=== PATIENT | male | born 1965 | race Caucasian/White ===

== ENCOUNTER 2018-05-06 15:47 | Inpatient (IN) ==
[2018-05-06] MEDS ORDERED: Acetaminophen 325 MG Tablet PO PRN (20:22)
[2018-05-06] MEDS ORDERED: Aluminum/Magnesium/Simethacone Susp 30 ML UDC PO PRN (20:22)
[2018-05-06] MEDS: LORazepam 1 MG Tablet PO PRN (21:05)
[2018-05-07] MEDS: LORazepam 1 MG Tablet PO PRN ×3 (09:44→18:29)
[2018-05-07 11:07] LABS: Cholesterol 243 mg/dL (120-200); Triglycerides 210 mg/dL (42-150)
[2018-05-07 11:08] LABS: Anion Gap 13 meq/L (5-15); Blood Urea Nitrogen 12 mg/dL (7-18); Calcium 9.3 mg/dL (8.5-10.1); Chloride 102 meq/L (98-107); Glomerular Filtration Rate Greater Than 89 mL/min (>89); Glucose,Random 105 mg/dL (74-106); Sodium 136 meq/L (136-145)
[2018-05-07 11:09] LABS: Potassium 4.5 meq/L (3.5-5.1)
[2018-05-07 11:15] LABS: Chol/HDL Ratio 4.67 Ratio; LDL Cholesterol,Calculated 149 mg/dL (0-99)
--- NOTE | 2018-05-07 12:46 | P.HPPSY ---
Provisional Diagnosis Admission Date: May 06, 2018 15:49 [place] I.: 1. Adjustment disorder with depressed mood Rule-out alcohol-induced mood disorder Rule-out mood episode as part of unipolar or bipolar mood disorder Rule-out secondary gain 2. Alcohol dependence Lowman II.: 1. Some cluster B personality traits Competence Certification of Person's Competence To Provide Express and Informed Consent I have personally examined Rahul Cadena, a person being served at [facility] on, May 07, 2018 1246. Express and informed consent means consent voluntarily given in writing, by a competent person, after sufficient explanation and disclosure of the subject matter involved to enable the person to make a knowing and willful decision without any element of force, fraud, deceit, duress, or other form of constraint or coercion. This person is 18 years of age or older, is not now known to be incompetent to consent to treatment with a guardian advocate, and does not have a health care surrogate or proxy currently making medical treatment decisions. I have found this person to be one of the following: [x] Competent to provide express and informed consent, as defined above, for voluntary admission to this facility and is competent to provide express and informed consent for treatment. He/she has the consistent capacity to make well reasoned, willful, and knowing decisions concerning his or her medical or mental health treatment. The person fully and consistently understands the purpose of the admission for examination/placement and is fully capable of personally exercising all rights assured [place] Incompetent to provide express and informed consent to voluntary admission, and this is incompetent to provide express and informed consent to treatment. The person must be transferred to involuntary status and a petition for a guardian advocate filed with the Circuit Court. [] Refusing to provide express and informed consent to voluntary admission but is competent to provide express and informed consent for treatment. The person must be discharged or transferred to involuntary status. Form shall be completed within 24 hours of a person's arrival at the receiving facility and filed in the clinical record of each person: 1. Admitted on a voluntary basis 2. Permitted to provide express and informed consent to his/her own treatment 3. Allowed to transfer from involuntary to voluntary status 4. Prior to permitting a person to consent to his or her own treatment after having been previously found incompetent to consent to treatment. History of Present Illness Capacity: Has capacity Chief Complaint: Nieto Act History of Present Illness: Mr. Cadena is a 52-year-old male with a reported history of depression, possible BPAD, and alcohol use issues who presents in transfer from the medical floor under a Nieto Act for suicidal ideation. Patient was seen in consultation on the medical floor by Dr. Lewis. The notes from the medical floor are presently filed under a different medical record number. Reviewing the electronic medical record, I see no previous psychiatric contact within our system. Patient seen and examined with nurse. Chart reviewed. Case discussed with nursing staff. On my exam, patient is noted to be somewhat passive aggressive and faultfinding initially. He exhibits some cluster B personality traits. He reports that he became distressed over the weekend and overdosed impulsively on 5 Depakote and 5 methocarbamol. His Depakote level was checked in the other medical record and was 43, i.e. low. He denies ongoing suicidal ideation. He complains of some mood instability, although he is a fairly vague historian and can describe no associated symptoms. I can appreciate no symptoms of wanda or hypomania presently. He does seem a little dysphoric and tearful at times. He denies any audiovisual hallucinations, and I can elicit no delusional material. He does allude to a traumatic history, although this too is somewhat diffuse, and says that he has experienced nightmares and hyperarousal in the past. The remainder of the psychiatric ROS is negative. No acute physical complaints. Past psychiatric history: The patient reports a history of "dual diagnosis" and says that he has had problems with "the bipolar, the depression." He reports that he is recently arrived in the area from [place] and followed in that state with a Dr. Charity Fields for psychiatric care and to Dr. Mera for psychotherapy. He reports that he was most recently hospitalized in [place], although the timing of this hospitalization is unclear. He reports one previous suicide attempt by overdose on drugs and alcohol in October,. He can remember no previous medication trials except for lithium, which made him feel "snappy." Family history: The patient denies a family history of mental illness, substance use disorder or suicide. Chemical dependency history: The patient reports that he drinks 2-18 beers daily. He endorses a history of withdrawal seizure in the past. He denies a history of DTs. He denies any other history of substance use. Social history: Patient is recently arrived in [facility]. He is single. He has a daughter, age 9, who resides with her mother. 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 He denies any access to guns or firearms. He denies any legal issues presently and denies any history of violent crime. He denies any history of DUIs. He describes himself as spiritual and says that he was raised [employer]. He does allude to a trauma history as noted above. Past medical history: Includes a history of diabetes, hypertension and neuropathy. 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 He denies a history of seizure disorder and says that he takes the Depakote for mood stabilization. - Inpatient Certification I certify that the inpatient services were ordered in accordance with Medicare regulations governing the order. This includes certification that hospital inpatient services are reasonable and necessary and in the case of services not specified as inpatient-only under 42 CFR 419.22(n), that they are appropriately provided as inpatient services in accordance to with the 2-midnight benchmark under 43 CFR 412.3(e) I certify that inpatient psychiatric hospital services are medically necessary. Evaluation and treatment and/or diagnostic testing are expected to improve the patient's condition. The patient needs on a daily basis, active treatment furnished directly by or requiring the supervision of inpatient psychiatric facility personnel. Estimated Total Length of Stay (Days): 5 Plans for Post Hospital Care: Not yet determined Review of Systems All other systems reviewed negative except as stated in HPI PMFSH - History History Provided By: Patient - Medical History Medical History: Medical History (Last Updated 05/07/18 @ 14:18 by Amelia Amezcua) Alcohol abuse Asthma Bipolar disorder Diabetes Hypertension - Surgical History Surgical History: Surgical History (Last Updated 05/07/18 @ 14:22 by Amelia Amezcua) H/O nasal septoplasty - Family History Family History: Family History (Last Updated 05/07/18 @ 14:22 by Amelia Amezcua) Other Family history reviewed with no changes - Tobacco History Second Hand Smoke Exposure: No Tobacco Use In Past 30 Days: No Smoking Status: Never smoker - Alcohol History How Often Do You Have a Drink Containing Alcohol: 4 or more times a week - Substance Use History Substance History: No History of Abuse Quality Measures - Patient Strengths Patient's strengths (minimum of 2): Attending to basic needs. Verbally fluent. Medications and Allergies Active Medications: Active Medications Acetaminophen (Tylenol) 650 mg PO Q4H PRN PRN Reason: Pain 1-5 or Temp >101F Al Hydrox/Mg Hydrox/Simethicone (Mag-Al Plus Susp Liq) 30 ml PO Q6H PRN PRN Reason: DYSPEPSIA Al Hydroxide/Mg Hydroxide (Milk Of Magnesia Liq) 30 ml PO DAILY PRN PRN Reason: CONSTIPATION Clonidine HCl (Catapres) 0.2 mg PO Q6H PRN PRN Reason: SEE LABEL COMMENTS Flumazenil (Romazecon Inj) 0.2 mg IV.PUSH Q1M PRN PRN Reason: OVERSEDATION Lorazepam (Ativan) 1 mg PO Q4H PRN PRN Reason: for CIWA 8-10 Last Admin: 05/07/18 09:44 Dose: 1 mg Lorazepam (Ativan) 2 mg PO Q2H PRN PRN Reason: for CIWA 11-14 Lorazepam (Ativan Inj) 2 mg IV.PUSH Q1H PRN PRN Reason: for CIWA 15-20 Lorazepam (Ativan Inj) 2 mg IV.PUSH Q15M PRN PRN Reason: for CIWA > 20 Lorazepam (Ativan Inj) 1 mg IV.PUSH Q4H PRN PRN Reason: for CIWA 8-10 Lorazepam (Ativan Inj) 2 mg IV.PUSH Q2H PRN PRN Reason: for CIWA 11-14 Multivitamins (Theragran) 1 tab PO DAILY [facility] Last Admin: 05/07/18 09:44 Dose: 1 tab Nicotine (Habitrol 21 Mg Patch.24 Hr) 1 patch T-DERMAL DAILY [facility] Last Admin: 05/07/18 09:10 Dose: Not Given Patch Removal (Remove Old Patch) 1 each T-DERMAL HS [facility] Thiamine HCl (Vitamin B1) 100 mg PO DAILY [facility] Last Admin: 05/07/18 09:44 Dose: 100 mg Allergies Allergy/AdvReac Type Severity Reaction Status Date / Time cat dander Allergy Intermediate asthma Verified 05/06/18 17:52 dog dander Allergy Intermediate asthma Verified 05/06/18 17:52 ragweed pollen Allergy Mild Shortness Verified 05/06/18 17:52 of Breath peanut Allergy Unknown Rash Verified 05/06/18 17:52 Results - Labs CBC & Chem 7: 05/07/18 09:53 Labs: Laboratory Results - last 24 hr 05/06/18 05/07/18 16:59 09:53 Sodium 136 Potassium 4.5 Chloride 102 Carbon Dioxide 21.0 Anion Gap 13 BUN 12 Creatinine 0.85 Estimated GFR Greater than 89 POC Glucose 98 Random Glucose 105 Calcium 9.3 Triglycerides 210 H Cholesterol 243 H LDL Cholesterol, Calc 149 H HDL Cholesterol 52.0 Cholesterol/HDL Ratio 4.67 Labs from the medical floor reviewed. CBC reveals a platelet count of 138, otherwise unremarkable. PT/INR within normal limits. CMP reveals elevated AST at 100. TSH was elevated at 3.87 but free T4 was within normal limits at 1.03. Alcohol level was elevated at 356 on presentation here. Urine toxicology was negative. Exam Vital signs: Vital Signs 05/06/18 17:00 05/07/18 05:24 Temperature 97.6 F 98.0 F Pulse Rate 117 H 106 H Respiratory Rate 18 16 Blood Pressure 145/95 H 136/88 Pulse Oximetry 98 Intake & Output 05/06/18 05/07/18 05/07/18 18:59 06:59 18:59 Weight 82.4 kg Narrative: Physical examination completed by hospitalist technical sales consultant. On my examination today, the patient appears to be in no acute physical distress. He does have a mild resting hand tremor but exhibits no diaphoresis, no mydriasis, no other signs of alcohol withdrawal. No other motor abnormalities noted. Labs and vital signs reviewed: Mental Status Examination Appearance: Appropriate Consciousness: Alert Orientation: x4 Motor Activity: Normal gait Speech: Unremarkable Language: Adequate Fund of Knowledge: Adequate Attention and Concentration: Adequate Memory: Unremarkable (Grossly intact on clinical exam) Mood: Other (Dysphoric) Affect: Appropriate (Fairly full and reactive) Thought Process & Associations: Circumstantial Thought Content: Appropriate Hallucination Type: None Delusion Type: None Suicidal Ideation: No Suicidal Plan: No Suicidal Intention: No Homicidal Ideation: No Homicidal Plan: No Homicidal Intention: No Insight: Fair Judgment: Impulsive Assessment and Plan - Assessment (1) Adjustment disorder with depressed mood Code(s): F43.21 - Adjustment disorder with depressed mood Status: Acute (2) Alcohol dependence Code(s): F10.20 - Alcohol dependence, uncomplicated Status: Acute - Plan Plan: 52-year-old male with psychiatric history as detailed above who presents in transfer from the medical floor under a Nieto act. On my examination today, the patient presents as a fairly vague historian. He does complain of some mood instability on an outpatient basis and presently his mood is somewhat dysphoric. He does describe a history of depression, possible bipolar illness and was apparently taking Depakote, trazodone and Zoloft on an outpatient basis. He reports impulsive overdose prior to presentation to the ED. Patient' s goal seems to be some sort of extended residential treatment, possibly chem dep rehab, and I wonder about secondary gain with this goal in mind; his reported overdose seems low-lethality and gestural. Some degree of alcohol- induced mood disorder is also possible. I will plan to admit the patient to the inpatient psychiatric unit for safety, observation and stabilization. Admit inpatient. Voluntary status. Discontinue Depakote and trazodone and replace with Zyprexa 5mg qHS, which it is hoped will provide both mood stabilization and assistance with sleep and in so doing reduce polypharmacy. I did discuss with patient in particular the potential for worsening of blood sugar control with this agent. Check EKG for QTc. Continue Zoloft 50mg daily as ordered on the medical floor. Atarax as needed for anxiety. R/B/A for medications discussed with patient. CIWA scale with Ativan for the management of any withdrawal. Seizure precautions. Hospitalist consult. Vitals every shift. Counselor to see. Collateral information. Disposition planning. Estimated length of stay: 5-7 days. Justification for Continued Inpatient Stay: Medication changes. Monitoring for impairment in safety. Discharge Planning: Pending psychiatric stabilization Request Healthcare Surrogate/Guardian Advocate?: No
[2018-05-07] MEDS ORDERED: Dextrose 50% in Water 50 ML Vial IV.PUSH PRN (12:51)
--- NOTE | 2018-05-07 14:44 | P.CON ---
History of Present Illness Service: Hospitalist service Consult date: 05/07/18 Requesting Physician: Arsenio Torres Reason for Consult: Assist with medical management Primary Care Provider: UNKNOWN History of Present Illness: This is a 52-year-old male with past medical history significant for bipolar disorder, hypertension, diabetes and alcohol abuse who was recently admitted under Nieto act to [place] on 05/04/2018 with alcohol withdrawal and questionable suicide attempt with excessive alcohol use in taking unknown amount of Depakote and Flexeril. Reportedly, patient moved to [place] 2 months ago. He had been clean from alcohol for 100 days but due to life stressors began drinking again. Patient was evaluated by psychiatry and admitted to the inpatient psychiatric unit. Hospitalist services have been consulted to assist with medical management. Patient seen and examined. Patient states he is still somewhat tremulous. He denies any auditory or visual hallucinations. Denies any nausea vomiting or abdominal pain. Denies any diarrhea. He reports 6 month history of dizziness that occurs with postural changes worse with upon standing. He denies any loss of consciousness but states it has been so severe that he fell and injured his lip. He denies any associated headache, memory loss or slurred speech. Review of Systems All other systems reviewed negative except as stated in HPI PMFSH - History History Provided By: Patient - Medical History Medical History: Medical History (Last Updated 05/07/18 @ 14:18 by Amelia Amezcua) Alcohol abuse Asthma Bipolar disorder Diabetes Hypertension - Surgical History Surgical History: Surgical History (Last Updated 05/07/18 @ 14:22 by Amelia Amezcua) H/O nasal septoplasty - Family History Family History: Family History (Last Updated 05/07/18 @ 14:22 by Amelia Amezcua) Other Family history reviewed with no changes - Tobacco History Second Hand Smoke Exposure: No Tobacco Use In Past 30 Days: No Smoking Status: Never smoker - Alcohol History How Often Do You Have a Drink Containing Alcohol: 4 or more times a week - Substance Use History Substance History: No History of Abuse Medications and Allergies Active Medications: Active Medications Acetaminophen (Tylenol) 650 mg PO Q4H PRN PRN Reason: Pain 1-5 or Temp >101F Al Hydrox/Mg Hydrox/Simethicone (Mag-Al Plus Susp Liq) 30 ml PO Q6H PRN PRN Reason: DYSPEPSIA Al Hydroxide/Mg Hydroxide (Milk Of Magnesia Liq) 30 ml PO DAILY PRN PRN Reason: CONSTIPATION Budesonide/Formoterol Fumarate (Symbicort 160/4.5 Mcg Inh) 2 puff INH BID [facility] Clonidine HCl (Catapres) 0.1 mg PO Q6H PRN PRN Reason: SEE LABEL COMMENTS Dextrose (D50w Vial) 50 ml IV.PUSH UNSCH PRN PRN Reason: PER HYPOGLYCEMIA PROTOCOL Flumazenil (Romazecon Inj) 0.2 mg IV.PUSH Q1M PRN PRN Reason: OVERSEDATION Glipizide (Glucotrol) 10 mg PO BID@0800,1700 [facility] Glucagon (Glucagon Inj) 1 mg OTHER PRN PRN PRN Reason: for Hypoglycemia Protocol Hydroxyzine HCl (Atarax) 50 mg PO Q6H PRN PRN Reason: ANXIETY Insulin Aspart (Novolog Insulin Suppl Scale Inj) 0 unit SQ ACHS [facility]; Protocol Lorazepam (Ativan) 1 mg PO Q4H PRN PRN Reason: for CIWA 8-10 Last Admin: 05/07/18 09:44 Dose: 1 mg Lorazepam (Ativan) 2 mg PO Q2H PRN PRN Reason: for CIWA 11-14 Lorazepam (Ativan Inj) 2 mg IV.PUSH Q1H PRN PRN Reason: for CIWA 15-20 Lorazepam (Ativan Inj) 2 mg IV.PUSH Q15M PRN PRN Reason: for CIWA > 20 Lorazepam (Ativan Inj) 1 mg IV.PUSH Q4H PRN PRN Reason: for CIWA 8-10 Lorazepam (Ativan Inj) 2 mg IV.PUSH Q2H PRN PRN Reason: for CIWA 11-14 Metformin [facility] (Gluc[facility]) [facility] Multivitamins (Theragran) 1 tab PO DAILY [facility] Last Admin: 05/07/18 09:44 Dose: 1 tab Nicotine (Habitrol 21 Mg Patch.24 Hr) 1 patch T-DERMAL DAILY [facility] Last Admin: 05/07/18 09:10 Dose: Not Given Olanzapine (Zyprexa) 5 mg PO HS [facility] Patch Removal (Remove Old Patch) 1 each T-DERMAL HS [facility] Sertraline HCl (Zoloft) 50 mg PO DAILY [facility] Thiamine HCl (Vitamin B1) 100 mg PO DAILY [facility] Last Admin: 05/07/18 09:44 Dose: 100 mg Allergies Allergy/AdvReac Type Severity Reaction Status Date / Time cat dander Allergy Intermediate asthma Verified 05/06/18 17:52 dog dander Allergy Intermediate asthma Verified 05/06/18 17:52 ragweed pollen Allergy Mild Shortness Verified 05/06/18 17:52 of Breath peanut Allergy Unknown Rash Verified 05/06/18 17:52 Physical Exam Vital signs: Vital Signs 05/06/18 17:00 05/07/18 05:24 Temperature 97.6 F 98.0 F Pulse Rate 117 H 106 H Respiratory Rate 18 16 Blood Pressure 145/95 H 136/88 Pulse Oximetry 98 Intake & Output 05/06/18 05/07/18 05/07/18 18:59 06:59 18:59 Weight 82.4 kg Narrative: GENERAL: This is a well-developed well-nourished male, no acute distress. Awake and alert. SKIN: Warm and dry. HEAD: Atraumatic. Normocephalic. EYES: Pupils equal and round. No scleral icterus. No injection or drainage. ENT: No nasal bleeding or discharge. Mucous membranes pink and moist. NECK: Trachea midline. CARDIOVASCULAR: Tachycardic. No murmurs noted. RESPIRATORY: No accessory muscle use. Clear to auscultation. Breath sounds equal bilaterally. GASTROINTESTINAL: Abdomen soft, non-tender, nondistended. Hepatic and splenic margins not palpable. MUSCULOSKELETAL: Extremities without clubbing, cyanosis, or edema. No obvious deformities. NEUROLOGICAL: Awake and alert. No obvious cranial nerve deficits. Motor grossly within normal limits. Able to move all extremities spontaneously. Bilateral hand tremors noted. Normal speech. PSYCHIATRIC: Appropriate mood and affect; insight and judgment normal. Assessment and Plan - Plan 52-year-old male with past medical history significant for bipolar disorder, hypertension, diabetes and alcohol abuse who was recently admitted under Nieto act to [place] on 05/04/2018 with alcohol withdrawal and questionable suicide attempt with excessive alcohol use in taking unknown amount of Depakote and Flexeril now in inpatient psychiatry and hospitalist services consulted to assist with medical management. Bipolar disorder Questionable suicide attempt with excessive alcohol, Flexeril and unknown amount of depakote Alcohol abuse History of alcohol withdrawal seizures Depakote level 43 05/04/18 serum alcohol level 356 at admission -Management per psychiatry -[facility] protocol -Monitor for signs of withdrawal -Seizure precautions -Thiamine/multivitamin with folic acid daily Dizziness, suspect orthostatic hypotension -Obtain orthostatic BP measurement -Fall precautions Tachycardia, suspect secondary withdrawal -monitor Hypertension History of intolerance to Norvasc secondary to edema -Lisinopril 5mg daily -Clonidine as needed with parameters -Continue to monitor BP and adjust treatment accordingly Diabetes A1c 6 -Continue patient on home dose of glipizide and metformin -Accu-Cheks and insulin sliding scale Dyslipidemia Tg 210, Chol 243, LDL 149 -Patient's ASCVD ten-year risk is 10.6% indicating he would benefit from statin therapy however patient with elevated AST -Recommend patient follow-up with PCP as outpatient to discuss possible initiation of statin therapy and have LFTs rechecked Transaminitis, secondary to alcohol abuse -Avoid hepatotoxic agent -Follow-up with PCP as outpatient to have LFTs rechecked Asthma, not in acute exacerbation -Duonebs as needed -Continue to monitor respiratory status DVT prophylaxis -Patient is ambulatory Thank you very kindly for this consultation. We will follow patient along with you. Discussed Condition With: patient and nursing staff
[2018-05-07] MEDS ORDERED: glipiZIDE 10 MG Tablet PO SCH (17:00)
--- NOTE | 2018-05-07 17:52 | ECG ---
Date Performed: 05/07/2018 Time Performed: 17:33:37 PTAGE: 52 years EKG: SINUS TACHYCARDIA WITH OCCASIONAL SUPRAVENTRICULAR PREMATURE COMPLEXES ABNORMAL RHYTHM ECG NO PREVIOUS TRACING DOCTOR: Sancho Harrison Interpretating Date/Time 05/07/2018 17:50:45
[2018-05-07] MEDS: Insulin NovoLOG Aspart Correctional Sugar Inj SQ SCH ×2 (19:30→20:13)
[2018-05-07] MEDS ORDERED: Budesonide-Formoterol 160/4.5 MCG 6 GM Inhaler INH SCH (21:00)
[2018-05-08] MEDS ORDERED: Sertraline 50 MG Tablet PO SCH (09:00)
[2018-05-08] MEDS ORDERED: Lisinopril 5 MG Tablet PO SCH (09:00)
[2018-05-08] MEDS: Insulin NovoLOG Aspart Correctional Sugar Inj SQ SCH (12:10)
--- NOTE | 2018-05-08 13:33 | P.DSPSY ---
Psychiatry Discharge Summary Inpatient Psychiatric care?: Yes Advance Directives: No Mental Health Advance Directive: No Health Care Proxy: No - Admission Admission Date: May 06, 2018 15:49 - Admission Diagnosis (1) Adjustment disorder with depressed mood Code(s): F43.21 - Adjustment disorder with depressed mood (2) Alcohol dependence Code(s): F10.20 - Alcohol dependence, uncomplicated Brief History: Mr. Cadena is a 52-year-old male with a reported history of depression, possible BPAD, and alcohol use issues who presents in transfer from the medical floor under a [place] for suicidal ideation. Patient was seen in consultation on the medical floor by Dr. Lewis. The notes from the medical floor are presently filed under a different medical record number. Reviewing the electronic medical record, I see no previous psychiatric contact within our system. Patient seen and examined with nurse. Chart reviewed. Case discussed with nursing staff. On my exam, patient is noted to be somewhat passive aggressive and faultfinding initially. He exhibits some cluster B personality traits. He reports that he became distressed over the weekend and overdosed impulsively on 5 Depakote and 5 methocarbamol. His Depakote level was checked in the other medical record and was 43, i.e. low. He denies ongoing suicidal ideation. He complains of some mood instability, although he is a fairly vague historian and can describe no associated symptoms. I can appreciate no symptoms of wanda or hypomania presently. He does seem a little dysphoric and tearful at times. He denies any audiovisual hallucinations, and I can elicit no delusional material. He does allude to a traumatic history, although this too is somewhat diffuse, and says that he has experienced nightmares and hyperarousal in the past. The remainder of the psychiatric ROS is negative. No acute physical complaints. Past psychiatric history: The patient reports a history of "dual diagnosis" and says that he has had problems with "the bipolar, the depression." He reports that he is recently arrived in the area from [place] and followed in that state with a Dr. Charity Fields for psychiatric care and to Dr. Mera for psychotherapy. He reports that he was most recently hospitalized in [place], although the timing of this hospitalization is unclear. He reports one previous suicide attempt by overdose on drugs and alcohol in October,. He can remember no previous medication trials except for lithium, which made him feel "snappy." Family history: The patient denies a family history of mental illness, substance use disorder or suicide. Chemical dependency history: The patient reports that he drinks 2-18 beers daily. He endorses a history of withdrawal seizure in the past. He denies a history of DTs. He denies any other history of substance use. Social history: Patient is recently arrived in [facility]. He is single. He has a daughter, age 9, who resides with her mother. He has an associates degree and says that he works as "an [employer]." He served in [employer]. He denies any access to guns or firearms. He denies any legal issues presently and denies any history of violent crime. He denies any history of DUIs. He describes himself as spiritual and says that he was raised [employer]. He does allude to a trauma history as noted above. Past medical history: Includes a history of diabetes, hypertension and neuropathy. 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 He denies a history of seizure disorder and says that he takes the Depakote for mood stabilization. Tobacco Use In Past 30 Days: No How Often Do You Have a Drink Containing Alcohol: 4 or more times a week Hospital Course: Patient was admitted to a locked, inpatient psychiatric unit. A general medical consultation was obtained. Appropriate precautions were in place throughout patient's hospital stay. Patient was seen and examined on the unit by psychiatry and also visited by counselor. Psychotropic medications were adjusted. Patient tolerated medication changes well without side effects. There was no evidence of suicidality or homicidality while the patient has been under observation on the inpatient unit. There was no evidence of self-care deficit. On the day of discharge: Patient seen and examined with nurse. Chart reviewed. Case discussed with nursing staff. No behavioral issues noted overnight. Case discussed with counselor. On my examination today, the patient is requesting discharge from the inpatient psychiatric unit today. He slept well with the Zyprexa last night and feels much improved today. He denies any suicidal or homicidal ideation, intent or plan and contracts for safety. Mood is "good." I can elicit no depressive or hypomanic/manic symptoms today. He denies any audiovisual hallucinations, and I can elicit no delusional material. There is no evidence of impairment in reality construction. He denies side effects from medications. He has no physical complaints. Patient's plan is to go [facility] [place] to obtain residential chemical dependency treatment, and I suspect this was his goal all along. Counselor Stacie has spoken with patient [facility] social worker aide and reports that SW will be able to meet with patient today after discharge and facilitate patient' s plan. Stacie has also spoken with patient's roommate who will be able to retrieve the patient and also is comfortable with having patient stay with him for a few days if this is needed prior to entry into [facility] program. Weighing the relevant factors and based on the available evidence, I overcoil stepper that the patient does not meet criteria for involuntary psychiatric hospitalization. Firstly, there is an available less restrictive alternative to involuntary hospitalization, namely the plan outlined above. Secondly, there is no evidence of imminent ongoing risk of harm to self or others, nor is there evidence of self-care deficit to support involuntary psychiatric hospitalization. The patient is requesting discharge from the inpatient psychiatric unit today, and I have no basis to retain him over his objection. That having been said, his departure does seem somewhat abrupt, and I think he would benefit from additional inpatient observation out of an abundance of caution. I have recommended that he remain through the weekend, but he has declined. I will therefore discharge him AGAINST MEDICAL ADVICE. I have explained to the patient that he is leaving AGAINST MEDICAL ADVICE. Psychiatric follow-up through the [facility]. Patient is also to follow up with primary care. I have supported the patient in his desire for sobriety. Patient to return to the psychiatric emergency room for any concerning symptoms as part of a general safety plan. I have prescribed patient's psychotropic medications in the smallest quantity consistent with good care to reduce the risk of impulsive overdose. - Discharge Discharge Date: 05/08/18 - Discharge Diagnosis (1) Adjustment disorder with depressed mood Diagnosis: Principal (resolved) Code(s): F43.21 - Adjustment disorder with depressed mood Status: Acute (2) Alcohol dependence Diagnosis: Secondary Code(s): F10.20 - Alcohol dependence, uncomplicated Status: Acute Discharge Disposition: AMA - Discharge Instructions Discharge Diet: Diabetic Diet Activities You Can Perform: Weight Bearing As Tolerat - Discharge Time > 30 minutes Mental Status Examination Appearance: Appropriate Consciousness: Alert Orientation: x4 Motor Activity: Other (Mild resting hand tremor. No diaphoresis, no mydriasis, no other signs of GABAergic withdrawal. No other motor abnormalities noted.) Speech: Unremarkable Language: Adequate Fund of Knowledge: Adequate Attention and Concentration: Adequate Memory: Unremarkable (Grossly intact on clinical exam) Mood: Appropriate, Good Affect: Appropriate, Euthymic Thought Process & Associations: Intact Thought Content: Appropriate Hallucination Type: None Delusion Type: None Suicidal Ideation: No Suicidal Plan: No Suicidal Intention: No Homicidal Ideation: No Homicidal Plan: No Homicidal Intention: No Mental Status Exam Remarks: Insight and judgment are perhaps fair Discharge/Advance Care Plan - Results Vital Signs: Last Vital Signs Temp 98.0 F 05/07/18 05:24 Pulse 106 H 05/07/18 05:24 Resp 16 05/07/18 05:24 BP 136/88 05/07/18 05:24 Pulse Ox 98 05/07/18 05:24 Lab Results: Abnormal Lab Results 05/07/18 05/07/18 05/08/18 09:53 16:43 11:13 POC Glucose 140 H 172 H Hemoglobin A1c 6.0 Laboratory Results Hemoglobin A1c 6.0 % (4.3-6.0) 05/07/18 09:53 Triglycerides 210 mg/dL (42-150) H 05/07/18 09:53 Cholesterol 243 mg/dL (120-200) H 05/07/18 09:53 LDL Cholesterol, Calc 149 mg/dL (0-99) H 05/07/18 09:53 HDL Cholesterol 52.0 mg/dL (40.0-60.0) 05/07/18 09:53 Summary of Procedures: None done Pending Results: None - Medications Number of antipsychotic medications at discharge: 1 - Discharge Care Plan Goals to Promote Your Health: * To prevent worsening of your condition and complications * To maintain your health at the optimal level Directions to Meet Your Goals: Take your medications as prescribed Follow your dietary instruction Follow activity as directed Keep your appointments as scheduled Take your immunizations and boosters as scheduled If your symptoms worsen call your PCP, if no PCP go to Urgent Care Center or Emergency Room For 26/05 questions related to your inpatient stay or results of tests pending at discharge, please contact Dr. Arsenio Torres MD at Smoking is Dangerous to Your Health. Avoid second hand smoking
== END 2018-05-08 15:45 | disposition left against medical advice (07) ==
LOC: H260 15:49
PROVIDERS: ADMIT Psychiatry & Neurology Psychiatry; ATTEND Psychiatry & Neurology Psychiatry